=== PATIENT | female | born 2000 | race Caucasian/White ===

== ENCOUNTER 2023-06-24 20:51 | Emergency (ER) | payer OTHER, SELFPAY ==
[2023-06-24 21:21] LABS: Pregnancy Test - Urine (BHCG) Negative (Negative); Pregu Control Background? CLEAR/WHITE (CLR/WHITE); Pregu Control Bar Appear? YES (CONTROL BAR); Specific Gravity 1.004 (1.002-1.036)
[2023-06-24] MEDS ORDERED: Ibuprofen 800 MG TAB ONE (21:46)
== END 2023-06-24 22:06 | disposition home or self-care (01) ==
LOC: BURERS 20:51
DX: S13.4XXA Sprain of ligaments of cervical spine, initial encounter (principal); S20.91XA Abrasion of unspecified parts of thorax, initial encounter; F17.210 Nicotine dependence, cigarettes, uncomplicated; V40.5XXA Car driver injured in collision with pedestrian or animal in traffic accident, initial encounter
CPT/HCPCS: 72040; 81025

== ENCOUNTER 2025-03-05 12:16 | Emergency (ER) | payer OTHER ==
[2025-03-05] MEDS ORDERED: Ibuprofen 800 MG TAB ONE (12:49)
== END 2025-03-05 14:15 | disposition home or self-care (01) ==
LOC: BURERS 12:16
DX: S92.352A Displaced fracture of fifth metatarsal bone, left foot, initial encounter for closed fracture (principal); F17.210 Nicotine dependence, cigarettes, uncomplicated; X50.0XXA Overexertion from strenuous movement or load, initial encounter
CPT/HCPCS: 99283